=== PATIENT | female | born 1980 | race American Indian/Alaskan Native ===

== ENCOUNTER 2017-03-08 23:18 | Emergency (ER) | payer OTHER ==
[2017-03-08 23:24] VITALS: BP 160/90
[2017-03-09] MEDS ORDERED: ZOFRAN IV ONE (00:15)
[2017-03-09] MEDS ORDERED: MORPHINE IV ONE (00:15)
[2017-03-09] MEDS ORDERED: ZOFRAN ONE (00:17)
[2017-03-09] MEDS ORDERED: MORPHINE ONE (00:18)
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
== END 2017-03-09 03:15 | disposition home or self-care (01) ==
LOC: ED 23:18
DX: S63.592A Other specified sprain of left wrist, initial encounter (principal); S19.9XXA Unspecified injury of neck, initial encounter; V49.49XA Driver injured in collision with other motor vehicles in traffic accident, initial encounter; Y93.89 Activity, other specified; Y92.89 Other specified places as the place of occurrence of the external cause; Y99.8 Other external cause status
CPT/HCPCS: 71100; 72125; 73100; 73562; 73600; 96374; 96375; 99284; J2270; J2405

== ENCOUNTER 2019-07-22 22:19 | Emergency (ER) | payer SELFPAY ==
[2019-07-22 22:28] VITALS: BP 120/77
== END 2019-07-23 01:08 | disposition left against medical advice (07) ==
LOC: ED 22:19
DX: R10.9 Unspecified abdominal pain (principal); Z53.21 Procedure and treatment not carried out due to patient leaving prior to being seen by health care provider